=== PATIENT | female | born 1970 | race African-American/Black ===

== ENCOUNTER 2018-04-17 12:35 | Emergency (ER) | payer BC, MEDICAID ==
[~2018-04-17] VITALS: Ht 175.3 cm; Wt 118.0 kg
[~2018-04-17 12:35] MED LIST: PROAIR; QVAR
[2018-04-17] MEDS ORDERED: IPRATROPIUM BROMIDE (0.02%) 0.5MG/2.5ML NEB HHN STA (14:22)
[2018-04-17] MEDS ORDERED: ALBUTEROL (0.083%) 2.5MG/3ML NEB HHN STA (14:22)
[2018-04-17 16:45] VITALS: BP 134/84
== END 2018-04-17 16:47 | disposition home or self-care (01) ==
LOC: ER 12:35
DX: J45.901 Unspecified asthma with (acute) exacerbation (principal); F17.200 Nicotine dependence, unspecified, uncomplicated; Z88.6 Allergy status to analgesic agent
CPT/HCPCS: 71045; 81025; 93005; 94640; 99283; J7611

== ENCOUNTER 2018-08-07 14:21 | Emergency (ER) | payer MEDICAID ==
[~2018-08-07] VITALS: Ht 175.3 cm; Wt 125.0 kg
[2018-08-07 14:59] VITALS: BP 169/70
== END 2018-08-07 20:58 | disposition left against medical advice (07) ==
LOC: ER 14:21
DX: R05 Cough (principal); R06.02 Shortness of breath; Z53.21 Procedure and treatment not carried out due to patient leaving prior to being seen by health care provider

== ENCOUNTER 2019-01-11 04:56 | Emergency (ER) | payer MEDICAID ==
[~2019-01-11] VITALS: Ht 175.3 cm; Wt 123.0 kg
[2019-01-11] MEDS ORDERED: MAGNESIUM 2 G PREMIX 50 ML IV STA (05:11)
[2019-01-11] MEDS ORDERED: SODIUM CHLORIDE 0.9% 1,000 ML IV ONE (05:11)
[2019-01-11] MEDS ORDERED: METHYLPREDNISOLONE SOD SUCC 125 MG/2 ML VIAL IV STA (05:11)
[2019-01-11] MEDS ORDERED: IPRATROPIUM BROMIDE (0.02%) 0.5MG/2.5ML NEB HHN STA ×2 (05:11→07:05)
[2019-01-11] MEDS ORDERED: ALBUTEROL (0.083%) 2.5MG/3ML NEB HHN STA ×2 (05:11→07:05)
[2019-01-11 05:29] LABS: BASOPHILS % 0.8 % (0.0-2.0); EOSINOPHILS % 9.9 % (0.0-5.0); HEMATOCRIT. 35.4 % (36.0-48.0); LYMPHOCYTES % 32.4 % (20.0-50.0); MEAN CORPUSCULAR HEMOGLOBIN 29.1 pg (28.0-32.0); MEAN CORPUSCULAR VOLUME 85.3 fL (81.0-99.0); MEAN PLATELET VOLUME 8.5 fl (7.4-10.4); MONOCYTES % 7.5 % (2.0-8.0); NEUTROPHILS % 49.4 % (40.0-76.0); PLATELET 296 x1000/uL (130-400); RED BLOOD CELL COUNT 4.15 mill/uL (4.2-5.4); RED CELL DISTRIBUTION WIDTH 13.9 % (11.6-14.6)
[2019-01-11 05:52] LABS: HCG SCREEN NEGATIVE
[2019-01-11 10:15] VITALS: BP 140/79
== END 2019-01-11 10:14 | disposition home or self-care (01) ==
LOC: ER 04:56
DX: J45.901 Unspecified asthma with (acute) exacerbation (principal); Z88.6 Allergy status to analgesic agent
CPT/HCPCS: 36415; 71045; 80048; 84703; 85025; 94644; 96365; 96375; 99285; J2930; J3475; J7030; J7611; Z7610

== ENCOUNTER 2019-03-21 02:29 | Emergency (ER) | payer MEDICAID ==
[~2019-03-21] VITALS: Ht 175.3 cm; Wt 118.0 kg
[2019-03-21] MEDS ORDERED: METHYLPREDNISOLONE SOD SUCC 125 MG/2 ML VIAL IV STA (03:09)
[2019-03-21] MEDS ORDERED: SODIUM CHLORIDE 0.9% 1,000 ML IV ONE (03:09)
[2019-03-21] MEDS ORDERED: IPRATROPIUM BROMIDE (0.02%) 0.5MG/2.5ML NEB HHN STA (03:09)
[2019-03-21] MEDS ORDERED: KETOROLAC 30MG/ML VIAL IV STA (03:09)
[2019-03-21] MEDS ORDERED: ALBUTEROL (0.083%) 2.5MG/3ML NEB HHN STA (03:09)
[2019-03-21 06:00] VITALS: BP 121/69
== END 2019-03-21 06:00 | disposition home or self-care (01) ==
LOC: ER 02:29
DX: J45.901 Unspecified asthma with (acute) exacerbation (principal); R03.0 Elevated blood-pressure reading, without diagnosis of hypertension
CPT/HCPCS: 71045; 94644; 96374; 96375; 99285; J1885; J2930; J7030; J7611; Z7610